=== PATIENT | male | born 1980 | race Caucasian/White ===

== ENCOUNTER 2019-04-04 13:54 | Emergency (ER) | payer MEDICAID ==
[~2019-04-04] VITALS: Ht 175.3 cm; Wt 121.1 kg
[2019-04-04 14:13] VITALS: Ht 175.3 cm; Wt 121.1 kg
[2019-04-04 14:41] VITALS: BP 128/78
== END 2019-04-04 16:06 | disposition left against medical advice (07) ==
LOC: ED 13:54
DX: Z53.21 Procedure and treatment not carried out due to patient leaving prior to being seen by health care provider (principal)